=== PATIENT | male | born 2000 | race Two or more races ===

== ENCOUNTER 2022-10-15 20:17 | Emergency (ER) | payer OTHER ==
[~2022-10-15] VITALS: Ht 157.5 cm; Wt 54.4 kg
[2022-10-16] MEDS ORDERED: ZYNCOF 20-400120 ML PO (01:36)
[2022-10-16] MEDS ORDERED: BUDESONIDE0.5 MG/2 M IH (01:36)
[2022-10-16] MEDS ORDERED: ALBUTEROL2.5 MG/3 M IH (01:36)
== END 2022-10-16 02:00 ==
LOC: EMR PED 20:17
DX: J10.1 Influenza due to other identified influenza virus with other respiratory manifestations (principal); J45.909 Unspecified asthma, uncomplicated; R50.9 Fever, unspecified; R53.81 Other malaise; Z20.822 Contact with and (suspected) exposure to COVID-19